=== PATIENT | female | born 1940 | race Caucasian/White ===

== ENCOUNTER 2018-08-28 08:07 | Day surgery (SDC) | payer OTHER ==
--- NOTE | 2018-08-22 15:32 | EKG ---
Test Date: 2018-08-22 Test Time: 14:45:07 Oliver Filter Operator: ELLA MEASUREMENT RESULTS: Intervals: Rate: 63 [place]: 146 QRSD: 98 QT: 436 QTc: 446 Amo: P: 75 [place]: 146 QRS: -14 T: 72 INTERPRETIVE STATEMENTS: Normal sinus rhythm Normal ECG Compared to ECG 05/02/2017 22:42:53 No significant changes Electronically Signed On 08-22-18 15:32:03 CAKE WRINGER by Micah Garcia
[2018-08-22 16:07] LABS: Absolute Lymphocytes (CBC) 1.2 K/uL (0.7-4.9); Absolute Monocytes 0.5 K/uL (0.1-1.3); Absolute Neutrophil 5.3 K/uL (1.8-8.0); Basophils % 1.3 % (0-1.3); Eosinophils % 1.5 % (0-4.4); Hematocrit 37.1 % (36.0-45.0); MCH 29.3 pg (27.0-35.0); MCV 88.3 fL (80-100); MPV 12.2 fL (7.6-11.3); Monocytes % 7.2 % (3.3-12.3); RBC Red Blood Cell Count 4.21 M/uL (3.86-4.86)
[2018-08-22 16:09] LABS: Urine Appearance CLEAR; Urine Bilirubin NEGATIVE (NEG); Urine Blood NEGATIVE (NEG); Urine Color YELLOW; Urine Glucose NEGATIVE (NEG); Urine Protein NEGATIVE (NEG); Urine Urobilinogen 0.2 mg/dL (0.2-1.0); Urine pH 7.5 (5.0-7.0)
[2018-08-22 16:11] LABS: Urine Microscopic Reflex NO UMIC
[2018-08-22 16:25] LABS: Albumin 3.6 g/dL (3.4-5.0); Bilirubin Total 0.4 mg/dL (0.2-1.0); Potassium 4.1 mmol/L (3.5-5.1); Protein, Total 7.5 g/dL (6.4-8.2)
--- NOTE | 2018-08-22 17:54 | RAD REPORT ---
EXAM DESCRIPTION: Nicole Richmond And Gaby (2 Views)08/22/2018 2:57 pm CLINICAL HISTORY: Preop for right hip surgery COMPARISON: 2012 FINDINGS: The lungs are moderately hyperaerated. The lungs appear clear of acute infiltrate. The hea rt is normal size. An area sclerosis within a midthoracic vertebral body is unchanged likely benign IMPRESSION: COPD without visualization of an acute abnormality
[2018-08-28] MEDS ORDERED: Ringers Lactate 1,000 ML IV ONE (08:30)
[2018-08-28] MEDS ORDERED: CEFAZOLIN 1GM (PREMIX IV) 1 GM/50 ML BAG ONE (08:31)
--- OUTSIDE RECORDS SUMMARY | 2018-08-28 09:05 | XMS REPORT | Clinical Summary ---
:1940 Author Organization [facility] Address [address] [place] [address] Care Team Providers Name Role Phone Lora Montes Primary Care Provider Allergies Active Allergy Reactions Severity Noted Date Comments Amoxicillin-Pot Clavulanate 03/03/2016 Medications Medication Sig Dispensed Refills Start Date End Date Status levothyroxine TK 1 T PO QAM ON 0 05/12/2016 Active (SYNTHROID, EMPTY STOMACH LEVOTHROID) 50 MCG tablet pravastatin Take 20 mg by 0 Active (PRAVACHOL) 20 MG mouth nightly. tablet omeprazole Take 40 mg by 0 Active (PriLOSEC) 40 MG mouth daily. capsule acetaminophen Take 500 mg by 0 Active (TYLENOL) 500 MG mouth every 6 tablet (six) hours as needed for mild pain. calcium Take 1 tablet by 0 Active carbonate-vitamin mouth daily. D3 (CALCIUM 600 + D,3,) 600 mg(1,500mg) -200 unit per tablet omega-3 fatty Take by mouth. 0 Active acids-vitamin E (FISH OIL) 1,000 mg capsule aspirin (ASPIR-81 Take 81 mg by 0 Active ORAL) mouth daily. losartan (COZAAR) Take 100 mg by 0 Active 100 MG tablet mouth daily. UNABLE TO FIND Inhale 1 puff 0 Active daily. Anora inhaler 1 puff daily UNABLE TO FIND Take 2 capsules 0 Active by mouth daily. Boswella betamethasone EKTA AA BID PRN. 0 05/12/2016 Discontinued dipropionate 8 (DIPROLENE) 0.05 % cream SPIRIVA WITH INL CONTENTS OF 1 05/04/2016 Discontinued HANDIHALER 18 mcg 1 C ONCE DAILY 8 per inhalation USING HANDIHALER capsule sulfaSALAzine Take 500 mg by 0 Discontinued (AZULFIDINE) 500 mg mouth 2 (two) 8 tablet times a day. folic acid Take 1 mg by 0 Discontinued (FOLVITE) 1 MG mouth daily. 8 tablet losartan-hydrochlor Take 1 tablet by 0 Discontinued othiazide (HYZAAR) mouth daily. 8 100-25 mg per tablet magnesium oxide Take 400 mg by 0 Discontinued (MAG-OX) 400 mg mouth daily. 8 tablet Active Problems Problem Noted Date Sacroiliitis 03/15/2018 Lesion of right lung 05/31/2016 Rheumatoid arthritis involving multiple sites with positive rheumatoid 2015 factor Follow-up examination following completed treatment with high-risk 05/31/2016 medications, not elsewhere classified Hypertension 03/03/2016 Overview: Controlled with medication GERD (gastroesophageal reflux disease) 03/03/2016 Hyperlipidemia 03/03/2016 Disease of thyroid gland Sacroiliac joint pain Back pain Arthritis Encounters Date Type Specialty Care Team Description 03/15/2018 Anesthesia Event General Surgery Dawna Jay FNP 03/15/2018 Surgery General Surgery Inocente Roberts, RIGHT SACROILIAC JOINT INJECTION 03/15/2018 Hospital Encounter General Surgery Inocente Roberts MD after 08/27/2017 Family History Medical History Relation Name Comments Aneurysm Other family hx of Cancer Other family hx of Gout Other family hx of Heart disease Other family hx of Relation Name Status Comments Other family hx of Other Social History Tobacco Use Types Packs/Day Years Used Date Never Smoker Smokeless Tobacco: Never Used Alcohol Use Drinks/Week oz/Week Comments Yes occasionally Sex Assigned at Date Recorded Not on file Job Start Date Occupation Industry Not on file Not on file Not on file Travel History Travel Start Travel End No recent travel history available. Last Filed Vital Signs Vital Sign Reading Time Taken Blood Pressure 155/74 03/15/2018 3:15 PM CDT Pulse 77 03/15/2018 3:15 PM CDT Temperature 36.4 C (97.6 F) 03/15/2018 2:51 PM CDT Respiratory Rate 19 03/15/2018 3:15 PM CDT Oxygen Saturation 92% 03/15/2018 3:15 PM CDT Inhaled Oxygen Concentration - - Weight 54.4 kg (120 lb) 03/15/2018 12:20 PM CDT Height 162.6 cm (5' 4") 03/15/2018 12:20 PM CDT Body Mass Index 20.6 03/15/2018 12:20 PM CDT Plan of Treatment Health Maintenance Due Date Last Done Comments SHINGRIX VACCINE (1 of 2) 1992 ZOSTER VACCINE 2002 PNEUMOCOCCAL POLYSACCHARIDE VACCINE AGE 65 AND OVER 2007 PNEUMOCOCCAL-13 2007 INFLUENZA VACCINE 04/18/2018 05/23/2014 Procedures Procedure Name Priority Date/Time Associated Diagnosis Comments OR FL < 1 HOUR Routine 03/15/2018 2:30 PM Results for this CDT procedure are in the results section. ECG 12-LEAD STAT 03/15/2018 12:39 PM Results for this CDT procedure are in the results section. after 08/27/2017 Results OR FL < 1 Hour (03/15/2018 2:30 PM CDT) Narrative Performed At EXAMINATION:[place] 1 HOUR [facility] CLINICAL HISTORY: Intraoperative fluoroscopy IMPRESSION: Fluoroscopy was provided. No radiologist present.Please see procedure report for discussion of procedure, findings and fluoroscopic time. [facility]-[id number] Procedure Note Hm Interface, Radiology Results Incoming - 03/15/2018 3:34 PM CDT EXAMINATION: OR FL 1 HOUR CLINICAL HISTORY: Intraoperative fluoroscopy IMPRESSION: Fluoroscopy was provided. No radiologist present. Please see procedure report for discussion of procedure, findings and fluoroscopic time. [facility]-[id number] Performing Organization Address [facility] Phone Number [facility] [address] [place] [address] ECG 12 lead (03/15/2018 12:39 PM CDT) Ventricular rate 69 HM MUSE Atrial rate 69 HM MUSE DE interval 146 [facility]USE QRSD interval 102 HM MUSE QT interval 416 [facility] QTC interval 445 [facility] P axis 1 69 HM MUSE QRS axis 1 -15 HM MUSE T wave axis 66 [facility] EKG impression Normal sinus rhythm-Normal ECG-No previous [facility] ECGs available- Performing Organization Address [facility] Phone Number [facility] [address] [place] [address] after 08/27/2017 Insurance Payer Benefit Plan / Group Subscriber ID Type Phone Address MEDICARE MEDICARE PART A AND B xxxxxxxxxx Medicare [place], [place] AETNA AETNA PPO OPEN CHOICE xxxxxxxxxx PPO A[employer] CO OF xxxxxxxxxx Commercial [address] [place] [address] Advance Directives Patient has advance care planning documents on file. For more information, please contact:Joni Carson[address] [place] [address]
[2018-08-28] MEDS ORDERED: LIDOCAINE 2% MPF 5 ML VIAL ONE (09:31)
[2018-08-28] MEDS ORDERED: PROPOFOL 200 MG/20 ML VIAL IV ONE (09:31)
[2018-08-28] MEDS ORDERED: FENTANYL CITR 100 MCG/2 ML ONE (09:31)
[2018-08-28] MEDS ORDERED: MIDAZOLAM HCL 2 MG/2 ML INJ ONE (09:31)
[2018-08-28] MEDS ORDERED: BUPIVACA 0.25%/EPI 0.0005% MDV 50 ML VIAL ONE (09:46)
[2018-08-28] MEDS ORDERED: EPHEDRINE SULF 50 MG/10 ML SYR ONE (10:18)
[2018-08-28] MEDS ORDERED: KETOROLAC 30 MG/ML INJ ONE (10:35)
--- NOTE | 2018-08-28 11:15 | P.BOP ---
Preoperative diagnosis: IMPACTED RIGHT FEMORAL NECK FRACTURE HEALED W/ SYMPTOMATIC ROD PINS(4) Postoperative diagnosis: SAME Primary procedure: REMOVAL ROD PINS RIGHT PROXIMAL FEMUR Sports Team Manager: Nickolas Cedeño Estimated blood loss: 10 mL Findings: ROD PINS x 4, REMOVED Anesthesia: General Complications: None Fluids & blood products: INJ. 0.25% MARCAINE 20 mL Transferred to: Recovery Room Condition: Good
[2018-08-28] MEDS ORDERED: ONDANSETRON 4 MG/2 ML VIAL ONE (11:22)
--- NOTE | 2018-08-28 12:38 | RAD REPORT ---
EXAM DESCRIPTION: RAD - Pelvis - 08/28/2018 11:34 am CLINICAL HISTORY: Fracture fixation hardware removal COMPARISON: Intraoperative imaging April 2017 TECHNIQUE: AP imaging of the pelvis was obtained. FINDINGS: Single AP view of the pelvis was obtained. Hardware has been removed from the proximal rig ht femur. No acute fracture change identified. No pathologic bone process seen. There is remodeling o f the femoral neck as a consequence of the prior fracture. No acute findings of the proximal left femur. No acute bony pelvis finding. Prominent lower lumbar de generative changes are present. IMPRESSION: Hardware removal from the proximal right femur. No suspicious or unexpected finding.
[2018-08-28 14:55] VITALS: BP 137/69; TEMP 98.2; O2SAT 100
--- NOTE | 2018-08-31 20:36 | OP ---
Date of Procedure: 08/28/2018 Surgeon: Nickolas Cedeño MD Aba Therapist: Dr. Colby Cedeño. Preoperative Diagnosis: Impacted right femoral neck fracture, healed with symptomatic Mclaughlin pins ( 4). Postoperative Diagnosis: Impacted right femoral neck fracture, healed with symptomatic Mclaughlin pins (4). Primary Procedure: Removal of Mclaughlin pins, right proximal femur. Indications: This 78-year-old female suffered a fracture of the right hip with a subcapital impactio n of the femoral neck, right proximal femur. Just over a year ago, the patient was treated with perc utaneous pin fixation with Mclaughlin pins x4. The patient has had recent symptoms regarding pain when she reclines on her right side. The pins telescoped and backed out some as healing occurred approxim ately 2 cm more prominent than when they were placed. The pins have become quite an irritant for the patient. The patient has elected after discussion of risks and benefits to have the Mclaughlin pins re moved. Technique: The patient was taken to the operating room and given a general anesthesia after being pl aced in the supine position on the operating table. She was then moved to the left lateral position with bolsters for the lumbar spine and the abdomen. These were padded with foam padding just to keep the side lying position. The right lower extremity was placed in traction. Time-out was called and all pertinent facts were discussed, and it was decided to proceed with the planned operation. The r ight lower extremity was prepped and draped free with an impervious stockinette for the unprepped osvaldo t as it was taken down from traction, the incision was made over the short 2 cm incision used for int roduction of the pins. This was made longitudinally and was extended an additional 2 cm to allow exp osure and sharp incision in the fascia kj and vastus lateralis. Bovie coagulation was utilized to control hemorrhage. The proximal end of the Mclaughlin pins was exposed and a T-handle wrench that was part of the Mclaughlin pin set was introduced to back out each Mclaughlin pin. A total of 4 pins were nirav joshua. Then, thorough normal saline irrigation was utilized, and #1 Vicryl was used to approximate the fascia of the vastus lateralis and the fascia kj. The irrigation was again utilized and then deep subcu was closed with #1 Vicryl and superficial subcutaneous closure was done with interrupted sutur es of 2-0 Vicryl. Skin marietta were used to perform skin closure and a sterile Aquacel bandage was a pplied with seal around the incision. Estimated blood loss was 10 mL. The incision was injected wit h 20 mL of 0.25% Marcaine with epi. The patient was then transferred to the recovery room having chava erated this procedure well. X-ray taken in recovery room verified that the pins were removed and the femoral neck was still in good position. ARPITA/SADAF Voice ID: [id number] Report ID: [id number]
== END 2018-08-28 12:30 | disposition home or self-care (01) ==
LOC: OR 08:07
PROVIDERS: ATTEND Orthopaedic Surgery
PROC: 0SP Lower Joints, Removal (ICD-10-PCS; principal; 2018-08-28 11:30)
DX: S72.001D Fracture of unspecified part of neck of right femur, subsequent encounter for closed fracture with routine healing (principal); X58.XXXD Exposure to other specified factors, subsequent encounter; G47.30 Sleep apnea, unspecified; J44.9 Chronic obstructive pulmonary disease, unspecified; Z79.899 Other long term (current) drug therapy; Z87.891 Personal history of nicotine dependence
CPT/HCPCS: 20680; 36415; 71046; 72170; 80053; 81003; 83036; 85025; 93005; J0690; J2250; J2405; J2704; J3010

== ENCOUNTER 2022-11-14 10:36 | Day surgery (SDC) | payer OTHER ==
--- NOTE | 2022-11-01 10:41 | RAD REPORT ---
EXAM DESCRIPTION: RAD - Chest Pa And Lat (2 Views) - 11/01/2022 10:32 am CLINICAL HISTORY: pre op abdominal angio COMPARISON: Chest Pa And Lat (2 Views) dated 08/22/2018; Chest Single View dated 05/02/2017; CHEST PA AND LAT 2 VIEW dated 05/03/2010 FINDINGS: Lines: None. Lungs: No evidence of edema or pneumonia. Pleural: No significant pleural effusions or pneumothorax. Cardiac: The heart size is within normal limits. Mediastinum: Within normal limits. Bones: No acute fractures. Sclerotic focus in the midthoracic spine is unchanged since 2018 and presu mably benign. Other: None IMPRESSION: No acute cardiopulmonary disease.
[2022-11-01 10:45] LABS: Absolute Lymphocytes (CBC) 1.1 K/uL (0.7-4.9); Hematocrit 35.8 % (36.0-45.0); Lymphocytes % 14.9 % (15.3-44.8); MPV 10.6 fL (7.6-11.3); RBC Red Blood Cell Count 3.76 M/uL (3.86-4.86)
[2022-11-01 10:47] LABS: Potassium 3.9 mmol/L (3.5-5.1)
[2022-11-01 11:11] LABS: Protime INR 0.96
--- NOTE | 2022-11-01 17:08 | EKG ---
Test Date: 2022-11-01 Test Time: 09:59:53 Manager Operational: HAIDER MEASUREMENT RESULTS: Intervals: Rate: 62 DC: 154 QRSD: 94 QT: 430 QTc: 436 [place]: P: 69 DC: 154 QRS: 6 T: 72 INTERPRETIVE STATEMENTS: Normal sinus rhythm Minimal voltage criteria for LVH, may be normal variant Borderline ECG Compared to ECG 08/22/2018 14:45:07 Left ventricular hypertrophy now present Electronically Signed On 11-01-22 17:07:58 [employer] PRODUCE SORTER by Mahesh Quinones
[~2022-11-14 10:36] MED LIST: ASPIRIN 325 MG TAB ONE; ATROPINE SULF 1 MG/10 ML SYR IV ONE; CLOPIDOGREL 75 MG TABLET ONE; FENTANYL CITR 100 MCG/2 ML ONE; HEPA 1000U/500MLS 2,000 UNIT/1,000 ML BAG IV ONE; HEPARIN 10,000 UNIT/10 ML VIAL IV ONE; HEPARIN 5000 UNIT/ML 1 ML VIAL ONE; LIDOCAINE 1% 20 ML MDV ONE; MIDAZOLAM HCL 2 MG/2 ML INJ ONE; NITROGLYCERIN 100 MCG/ML SYR (for cath lab use only) IV ONE; TICAGRELOR 90 MG TABLET PO ONE; VERAPAMIL HCL 10 MG/4 ML VIAL IV ONE
[2022-11-14] MEDS ORDERED: NA CHLORIDE 0.9% 500 ML ONE (10:40)
[2022-11-14 11:23] VITALS: TEMP 97
[2022-11-14 13:59] VITALS: O2SAT 100
[2022-11-14 14:46] VITALS: BP 121/60
--- NOTE | 2022-11-14 19:14 | OP ---
Date of Procedure: 11/14/2022 Surgeon: NITHYA HERNANDEZ Procedure Performed: Peripheral angiogram. Indications: Significant peripheral vascular disease by Doppler. Access: Right radial artery 6-Maltese closed with TR band. Complications: None. Bleeding: Less than 10 mL. Anesthesia: Total sedation time was 35 minutes. Description Of Procedure: After risks, benefits, alternatives were explained, the patient agreed to procedure and signed informed consent. The [facility], prepped and draped in the usual sterile fashion. Then, I accessed right radial artery using pediatric micropuncture kit, placed a 6-Maltese Slender sheath. I took a long pigtail catheter into d istal aorta, performed distal aortogram and runoff, and then removed the catheter and sheath, placed TR band with good hemostasis. Findings: 1.Distal aorta narrowed by 40% stenosis. 2.Right common iliac has 60% stenosis. In right internal iliac, there are multiple lesions ranging between 80% and 90% and then the right SFA has multiple lesions ranging between 40% and 50% and very sluggish flow below the knee, and the right common femoral artery has about 80% to 90%. 3.The left common iliac has about 40% stenosis diffusely and then the left common femoral artery jaspal ears to be with luminal irregularities and profunda on both sides are patent. Then, the left SFA has multiple areas ranging between 50% and 60% stenosis. Below the knee, the anterior tibial is totally occluded, posterior tibial totally occluded and there was only the peroneal that goes all the way to the foot. Conclusion: Severe bilateral peripheral vascular disease. Recommendation: We will plan for staged intervention on the left iliac and femoral arteries with jerzy duque at [facility]. SR/MODL Voice ID: [id number] Report ID: [id number]
== END 2022-11-14 15:03 | disposition home or self-care (01) ==
LOC: CCL 10:36
PROVIDERS: ATTEND Internal Medicine
DX: I70.203 Unspecified atherosclerosis of native arteries of extremities, bilateral legs (principal); I70.92 Chronic total occlusion of artery of the extremities; I70.0 Atherosclerosis of aorta; I34.0 Nonrheumatic mitral (valve) insufficiency; I50.9 Heart failure, unspecified; I11.0 Hypertensive heart disease with heart failure; E78.5 Hyperlipidemia, unspecified; Z79.899 Other long term (current) drug therapy; Z88.0 Allergy status to penicillin
CPT/HCPCS: 93005; 85025; 80048; 36415; 85610; 85730; 71046; 36200; 36245; C1893; J2001; J1644 ×2; J2250; J3010; J7040; 75630; J0461